=== PATIENT | female | born 1990 | race Caucasian/White ===

== ENCOUNTER 2017-06-23 16:05 | Inpatient (IN) | payer BC, OTHER ==
[~2017-06-23] VITALS: Ht 175.3 cm; Wt 76.9 kg
[2017-06-23] MEDS ORDERED: DEXAMETHASONE 4 MG/ML, 1ML IVPush ONE (16:30)
[2017-06-23] MEDS ORDERED: SODIUM CHLORIDE 0.9% 1,000ML IVBOLUS ONE (16:30)
[2017-06-23] MEDS ORDERED: KETOROLAC 30 MG/1 ML IVPush ONE (16:30)
[2017-06-23] MEDS ORDERED: METOCLOPRAMIDE 5 MG/ML, 2ML IVPush ONE (16:30)
[2017-06-23] MEDS ORDERED: SODIUM CHLORIDE FLUSH 10ML SYR IVF ONE (16:30)
[2017-06-23] MEDS ORDERED: DIPHENHYDRAMINE 50 MG/ML, 1ML IVPush ONE (16:30)
[2017-06-23] MEDS ORDERED: SUMATRIPTAN 6MG/0.5ML SQ ONE ×2 (16:30→18:11)
[2017-06-23 17:04] LABS: HEMATOCRIT 45.2 % (34.6-47.8); HEMOGLOBIN 15.3 g/dL (11.7-16.4); WHITE BLOOD COUNT 7.5 x10^3/uL (3.4-10)
[2017-06-23 17:15] LABS: BLOOD UREA NITROGEN 9 mg/dL (7-18)
[2017-06-23] MEDS ORDERED: DIPHENHYDRAMINE 50 MG/ML, 1ML ONE (18:11)
[2017-06-23] MEDS ORDERED: KETOROLAC 30 MG/1 ML ONE (18:11)
[2017-06-23] MEDS ORDERED: DEXAMETHASONE 4 MG/ML, 5ML ONE (18:11)
[2017-06-23] MEDS ORDERED: METOCLOPRAMIDE 5 MG/ML, 2ML ONE (18:11)
[2017-06-23 20:50] LABS: GLUCOSE, CSF 42 mg/dL (40-80)
[2017-06-23] MEDS ORDERED: CEFTRIAXONE PMX 2GM/50ML 50 ML ONE (21:47)
[2017-06-23] MEDS ORDERED: CEFTRIAXONE PMX 2GM/50ML 50 ML IV ONE (22:00)
[2017-06-23] MEDS ORDERED: ACETAMINOPHEN 325 MG TABLET PO PRN (22:30)
[2017-06-23] MEDS ORDERED: hydrALAzine 20 MG/ML, 1ML IVPush PRN (22:30)
[2017-06-23] MEDS ORDERED: ONDANSETRON 2MG/ML, 2ML IVPush PRN (22:30)
[2017-06-23] MEDS: LACTATED RINGERS 1,000 ML IV SCH (23:19)
[2017-06-23] MEDS: ACYCLOVIR IV SCH (23:22)
[2017-06-23] MEDS: SODIUM CHLORIDE 0.9% IV SCH (23:22)
[2017-06-24] MEDS: LACTATED RINGERS 1,000 ML IV SCH ×2 (06:28→15:26)
[2017-06-24] MEDS: SODIUM CHLORIDE 0.9% IV SCH ×3 (06:28→23:06)
[2017-06-24] MEDS: ACYCLOVIR IV SCH ×3 (06:28→23:06)
[2017-06-24 08:35] VITALS: BP 128/76
[2017-06-24] MEDS: BUTALB/APAP/CAFFEINE 50MG/325MG/40MG PO PRN ×3 (09:48→22:05)
[2017-06-24 14:00] VITALS: BP 117/74
[2017-06-24 20:16] VITALS: BP 116/71
[2017-06-25 00:11] VITALS: BP 110/69
[2017-06-25] MEDS: BUTALB/APAP/CAFFEINE 50MG/325MG/40MG PO PRN ×4 (02:41→16:27)
[2017-06-25 07:36] VITALS: BP 126/77
[2017-06-25 07:50] VITALS: BP 115/77
[2017-06-25] MEDS: ACYCLOVIR IV SCH ×2 (08:26→16:25)
[2017-06-25] MEDS: SODIUM CHLORIDE 0.9% IV SCH ×2 (08:26→16:25)
[2017-06-25 13:59] VITALS: BP 111/73
[2017-06-25] MEDS: KETOROLAC 30 MG/1 ML IVPush SCH ×2 (16:27→22:56)
[2017-06-25 20:34] VITALS: BP 109/63
[2017-06-25] MEDS: METOCLOPRAMIDE 5 MG/ML, 2ML IVPush PRN (20:55)
[2017-06-25] MEDS: DIPHENHYDRAMINE 50 MG/ML, 1ML IVPush PRN (20:55)
[2017-06-26] MEDS: ACYCLOVIR IV SCH ×2 (01:16→09:52)
[2017-06-26] MEDS: SODIUM CHLORIDE 0.9% IV SCH ×2 (01:16→09:52)
[2017-06-26] MEDS: BUTALB/APAP/CAFFEINE 50MG/325MG/40MG PO PRN ×3 (01:21→12:57)
[2017-06-26 02:00] VITALS: BP 104/66
[2017-06-26] MEDS: KETOROLAC 30 MG/1 ML IVPush SCH ×2 (04:05→09:52)
[2017-06-26 08:09] VITALS: BP 116/74
[2017-06-26] MEDS: DIPHENHYDRAMINE 50 MG/ML, 1ML IVPush PRN (09:14)
[2017-06-26] MEDS: METOCLOPRAMIDE 5 MG/ML, 2ML IVPush PRN (09:15)
[2017-06-26 13:42] VITALS: BP 113/68
[2017-06-26] MEDS ORDERED: BUTA-177 PO (14:39)
[2017-06-28 13:06] LABS: WEST NILE VIRUS IGG CSF Negative (Negative); WEST NILE VIRUS IGM CSF Negative (Negative)
== END 2017-06-26 16:00 | disposition home or self-care (01) | DRG 75 ==
LOC: ED 18:43 → EDIP 21:47 → SUATTDRO 22:29 → 3NE 06-24 07:40
PROVIDERS: ADMIT Hospitalist; ATTEND Hospitalist
PROC: 009U3ZX Drainage of Spinal Canal, Percutaneous Approach, Diagnostic (ICD-10-PCS; principal; 2017-06-23)
DX: A87.9 Viral meningitis, unspecified (principal); K51.90 Ulcerative colitis, unspecified, without complications
CPT/HCPCS: 36415; 62270; 70450; 80048; 82040; 82945; 84157; 84703; 85025; 86788; 86789; 87040; 87070; 87205; 87252; 87529; 89051; 96361; 96365; 96372; 96375; J0133; J0696; J1100; J1885; J2405; J1200; J2765; J3030; J7030; J7120

== ENCOUNTER 2018-02-23 10:57 | Outpatient (CLI) | payer OTHER ==
[~2018-02-23] VITALS: Ht 175.3 cm; Wt 90.0 kg
[~2018-02-23 10:57] MED LIST: BUTA-177 PO
[2018-02-23 11:59] LABS: MICROSCOPIC NOT IND
[2018-02-23 11:59] LABS: BASOPHILS # (AUTO) 0.02 x10^3/uL (0-0.1); BASOPHILS % (AUTO) 0 % (0-1); EOSINOPHILS # (AUTO) 0.14 x10^3/uL (0-0.4); EOSINOPHILS % (AUTO) 1 % (1-7); LYMPHOCYTES # (AUTO) 1.79 x10^3/uL (1-3.4); LYMPHOCYTES % (AUTO) 17 % (22-44); MD NO; MEAN CORPUSCULAR HEMOGLOBIN 30.5 pg (27.0-34.8); MEAN CORPUSCULAR HGB CONC 33.4 g/dL (32.4-35.8); MEAN CORPUSCULAR VOLUME 91.3 fL (80-100); MEAN PLATELET VOLUME 7.6 fL (7.4-10.4); MONOCYTES # (AUTO) 0.53 x10^3/uL (0.2-0.8); MONOCYTES % (AUTO) 5 % (2-9); NEUTROPHILS # (AUTO) 7.82 x10^3/uL (1.8-6.8); NEUTROPHILS % (AUTO) 76 % (42-75); PLATELET COUNT 353 x10^3/uL (130-400); RED BLOOD COUNT 3.86 x10^6/uL (3.82-5.3); RED CELL DISTRIBUTION WIDTH 13.5 % (9.6-15.2)
[2018-02-23 12:05] LABS: PROTEIN/CREATININE RATIO,URINE < 225 (0-200); TOTAL PROTEIN,URINE RANDOM < 5 mg/dL (0-12)
[2018-02-23 12:08] LABS: ALANINE AMINOTRANSFERASE 16 U/L (12-78); ALBUMIN 2.6 g/dL (3.4-5.0); ANION GAP 5 mmol/L (5-15); CALCIUM 8.4 mg/dL (8.5-10.1); CHLORIDE 107 mmol/L (98-107); CREATININE 0.59 mg/dL (0.55-1.02)
[2018-02-23 12:10] LABS: ALKALINE PHOSPHATASE 92 U/L (45-117); BILIRUBIN,TOTAL 0.3 mg/dL (0.2-1.0); TOTAL PROTEIN 6.3 g/dL (6.4-8.2)
[2018-02-23] MEDS ORDERED: ACETAMINOPHEN 325 MG TABLET ONE (12:12)
[2018-02-23] MEDS ORDERED: ACETAMINOPHEN 325 MG TABLET PO PRN (12:30)
[2018-02-23] MEDS ORDERED: CYCLOBENZAPRINE 10 MG TABLET PO ONE (12:30)
[2018-02-23] MEDS ORDERED: CYCL-259 PO (13:30)
[2018-02-23] MEDS ORDERED: ACET325S PO (13:32)
[2018-02-23] MEDS ORDERED: PREN1TAB10 PO (13:33)
== END 2018-02-23 14:17 | disposition home or self-care (01) ==
LOC: LDOP 10:57
PROVIDERS: ATTEND Obstetrics & Gynecology
DX: O26.893 Other specified pregnancy related conditions, third trimester (principal); R51 Headache; Z3A.33 33 weeks gestation of pregnancy
CPT/HCPCS: 36415; 59025; 80053; 81003; 82570; 84156; 84550; 85025; 99211; G0463

== ENCOUNTER 2018-03-29 16:57 | Outpatient (CLI) | payer OTHER ==
[~2018-03-29] VITALS: Ht 175.3 cm; Wt 93.2 kg
[~2018-03-29 16:57] MED LIST changes: +ACET325S PO; +CYCL-259 PO; +PREN1TAB10 PO
== END 2018-03-29 18:45 | disposition home or self-care (01) ==
LOC: LDOP 16:57
PROVIDERS: ATTEND Obstetrics & Gynecology
DX: O62.9 Abnormality of forces of labor, unspecified (principal); Z3A.00 Weeks of gestation of pregnancy not specified
CPT/HCPCS: 59025; 99211; G0463

== ENCOUNTER 2018-04-09 04:06 | Inpatient (IN) | payer OTHER ==
[~2018-04-09] VITALS: Ht 175.3 cm; Wt 93.0 kg
[2018-04-09] MEDS ORDERED: OXYTOCIN 30U/ 0.9% NaCL 500ML 500 ML IV ONE (04:23)
[2018-04-09] MEDS ORDERED: D5%-LACTATED RINGERS 1,000 ML IV SCH (04:23)
[2018-04-09] MEDS ORDERED: OXYTOCIN 30U/ 0.9% NaCL 500ML 500 ML ONE (04:24)
[2018-04-09] MEDS ORDERED: NEWBORN KIT ONE (04:24)
[2018-04-09] MEDS ORDERED: LIDOCAINE/PF 1%, 30ML ONE (04:25)
[2018-04-09] MEDS ORDERED: MISOPROSTOL 200 MCG TABLET ONE (04:25)
[2018-04-09] MEDS ORDERED: FENTANYL PF 100 MCG/2ML IVPush PRN (04:30)
[2018-04-09] MEDS ORDERED: TERBUTALINE 1 MG/ML, 1ML IVPush PRN (04:30)
[2018-04-09] MEDS ORDERED: FENTANYL PF 100 MCG/2ML IV PRN (04:30)
[2018-04-09] MEDS ORDERED: CALCIUM CARBONATE 500 MG TAB.CHEW PO PRN (04:30)
[2018-04-09] MEDS ORDERED: ONDANSETRON 2MG/ML, 2ML IVPush PRN (04:30)
[2018-04-09] MEDS: LACTATED RINGERS 1,000 ML IV SCH ×2 (04:47→08:27)
[2018-04-09 05:00] LABS: BASOPHILS # (AUTO) 0.03 x10^3/uL (0-0.1); BASOPHILS % (AUTO) 0 % (0-1); EOSINOPHILS # (AUTO) 0.05 x10^3/uL (0-0.4); EOSINOPHILS % (AUTO) 0 % (1-7); LYMPHOCYTES # (AUTO) 2.26 x10^3/uL (1-3.4); LYMPHOCYTES % (AUTO) 15 % (22-44); MD NO; MEAN CORPUSCULAR HEMOGLOBIN 29.1 pg (27.0-34.8); MEAN CORPUSCULAR HGB CONC 33.2 g/dL (32.4-35.8); MEAN CORPUSCULAR VOLUME 87.5 fL (80-100); MEAN PLATELET VOLUME 7.9 fL (7.4-10.4); MONOCYTES # (AUTO) 0.61 x10^3/uL (0.2-0.8); MONOCYTES % (AUTO) 4 % (2-9); NEUTROPHILS # (AUTO) 11.95 x10^3/uL (1.8-6.8); NEUTROPHILS % (AUTO) 80 % (42-75); PLATELET COUNT 536 x10^3/uL (130-400); RED BLOOD COUNT 4.77 x10^6/uL (3.82-5.3); RED CELL DISTRIBUTION WIDTH 14.5 % (9.6-15.2)
[2018-04-09] MEDS ORDERED: FENTANYL PF 100 MCG/2ML ONE (05:55)
[2018-04-09] MEDS ORDERED: OXYTOCIN 30U/ 0.9% NaCL 500ML 500 ML IV SCH (07:25)
[2018-04-09] MEDS ORDERED: ONDANSETRON 2MG/ML, 2ML IV PRN (07:30)
[2018-04-09] MEDS ORDERED: MISOPROSTOL 200 MCG TABLET PR PRN (07:30)
[2018-04-09] MEDS ORDERED: METHYLERGONOVINE 0.2 MG/ML IM PRN (07:30)
[2018-04-09] MEDS ORDERED: OXYcodone IR 5MG TABLET PO PRN (07:30)
[2018-04-09] MEDS ORDERED: IBUPROFEN 600 MG TABLET ONE (07:35)
[2018-04-09] MEDS ORDERED: OXYcodone/APAP 5/325MG TABLET ONE (07:36)
[2018-04-09] MEDS: OXYcodone/APAP 5/325MG TABLET PO PRN ×4 (07:40→22:52)
[2018-04-09] MEDS: IBUPROFEN 600 MG TABLET PO PRN ×3 (07:40→20:26)
[2018-04-09] MEDS: PRENATAL VIT/IRON/FA 1 EACH TABLET PO SCH (09:00)
[2018-04-09 09:36] VITALS: BP 132/82
[2018-04-09] MEDS: DOCUSATE 100 MG CAPSULE PO PRN ×2 (12:29→20:26)
[2018-04-09 14:26] VITALS: BP 122/77
[2018-04-09 14:35] LABS: MEAN CORPUSCULAR HEMOGLOBIN 28.4 pg (27.0-34.8); MEAN CORPUSCULAR HGB CONC 33.1 g/dL (32.4-35.8); MEAN CORPUSCULAR VOLUME 85.8 fL (80-100); PLATELET COUNT 509 x10^3/uL (130-400); RED BLOOD COUNT 3.87 x10^6/uL (3.82-5.3); RED CELL DISTRIBUTION WIDTH 14.2 % (9.6-15.2)
[2018-04-09 14:36] LABS: HEMOGRAM NOTE RECHECKED
[2018-04-09 15:05] LABS: MD YES
[2018-04-09 15:06] LABS: BAND#(MANUAL) 1.54 x10^3/uL; BANDS%(MANUAL) 8 % (0-7); LYMPHS% (MANUAL) 12 % (22-44); MONOS#(MANUAL) 0.58 x10^3/uL (0.3-2.7); MONOS% (MANUAL) 3 % (2-9); SEG#(MANUAL) 14.78 x10^3/uL (1.8-6.8); SEGS% (MANUAL) 77 % (42-75)
[2018-04-09 15:07] LABS: <PLATELET ESTIMATE> INCREASED; <PLT MORPHOLOGY> NORMAL PLT MORPH
[2018-04-09 15:08] LABS: <RBC MORPHOLOGY> NORMAL
[2018-04-09 20:05] VITALS: BP 110/75
[2018-04-09 23:58] VITALS: BP 105/64
[2018-04-10] MEDS: IBUPROFEN 600 MG TABLET PO PRN ×2 (06:26→15:33)
[2018-04-10 08:45] VITALS: BP 111/76
[2018-04-10] MEDS: DOCUSATE 100 MG CAPSULE PO PRN (08:55)
[2018-04-10] MEDS: OXYcodone/APAP 5/325MG TABLET PO PRN ×2 (08:59→13:51)
[2018-04-10] MEDS: PRENATAL VIT/IRON/FA 1 EACH TABLET PO SCH (09:02)
[2018-04-10] MEDS ORDERED: IBUP-1222 PO (15:53)
[2018-04-10] MEDS ORDERED: OXYC-302 PO (15:54)
[2018-04-10] MEDS ORDERED: DOCU-131 PO (15:54)
== END 2018-04-10 16:22 | disposition home or self-care (01) | DRG 775 ==
LOC: LDOP 04:06 → LDIP 04:26 → 2NW 09:19
PROVIDERS: ADMIT Obstetrics & Gynecology; ATTEND Obstetrics & Gynecology
PROC: 10E0XZZ Delivery of Products of Conception, External Approach (ICD-10-PCS; principal; 2018-04-09)
PROC: 0KQM0ZZ Repair Perineum Muscle, Open Approach (ICD-10-PCS; 2018-04-09)
DX: O32.9XX0 Maternal care for malpresentation of fetus, unspecified, not applicable or unspecified (principal); O70.1 Second degree perineal laceration during delivery; Z37.0 Single live birth; Z82.49 Family history of ischemic heart disease and other diseases of the circulatory system
CPT/HCPCS: 36415; 85025; 86850; 86900; J3010; J2590; J7120